=== PATIENT | female | born 1955 | race Caucasian/White ===

== ENCOUNTER 2017-07-24 09:11 | Emergency (ER) | payer MEDICAID ==
--- NOTE | 2017-07-24 10:10 | EDM.PDOC ---
ED HPI GENERAL MEDICAL PROBLEM - General Chief Complaint: ENT Problem Stated Complaint: sore throat, body aches Time Seen by Provider: 07/24/17 09:23 Source of Information: Reports: Patient History Limitations: Reports: No Limitations - History of Present Illness INITIAL COMMENTS - FREE TEXT/NARRATIVE: Patient presents this morning with complaints of all over body aches and pains. States she has a sore throat. She also complains of having a fever. She states that these symptoms all started yesterday about middle of the afternoon and have progressively worsened. She has no other complaints morning. Onset: Sudden Onset Date: 07/23/17 Duration: Getting Worse Location: Reports: Neck Quality: Reports: Ache Severity: Moderate Associated Symptoms: Reports: Fever/Chills, Other (muscle aches and pain) - Related Data Allergies Allergy/AdvReac Type Severity Reaction Status Date / Time Sulfa (Sulfonamide Allergy Rash Verified 07/24/17 09:58 Antibiotics) Home Meds: Home Meds . [Unable to Verify Home Med List] 07/24/17 [History] ED ROS ENT - Review of Systems Review Of Systems: See Below Constitutional: Reports: Fever, Chills, Diaphoresis HEENT: Reports: Throat Pain Respiratory: Reports: No Symptoms Cardiovascular: Reports: No Symptoms Endocrine: Reports: No Symptoms GI/Abdominal: Reports: Abdominal Pain : Reports: No Symptoms Musculoskeletal: Reports: Neck Pain, Joint Pain, Muscle Pain Skin: Reports: No Symptoms Neurological: Reports: No Symptoms Psychiatric: Reports: No Symptoms Hematologic/Lymphatic: Reports: No Symptoms Immunologic: Reports: No Symptoms ED EXAM, ENT - Physical Exam Exam: See Below Exam Limited By: No Limitations General Appearance: Alert, WD/WN, Mild Distress Eye Exam: Bilateral Eye: EOMI, PERRL Ears: Normal TMs Mouth/Throat: Normal Inspection, Normal Gums, Normal Lips, Normal Oropharynx Head: Atraumatic, Normocephalic Neck: Supple, Non-Tender, Full Range of Motion, Lymphadenopathy (R) Respiratory/Chest: No Respiratory Distress, Lungs Clear, Normal Breath Sounds, No Accessory Muscle Use, Chest Non-Tender Cardiovascular: Normal Peripheral Pulses, Regular Rate, Rhythm, No Edema GI/Abdominal: Normal Bowel Sounds, Soft, Non-Tender, No Organomegaly, No Distention, No Abnormal Bruit, No Mass Back: Normal Inspection, Full Range of Motion Extremities: Normal Inspection, Normal Range of Motion, Non-Tender, No Pedal Edema, Normal Capillary Refill Neurological: Alert, Oriented, CN II-XII Intact, Normal Cognition, Normal Gait, Normal Reflexes, No Motor/Sensory Deficits Psychiatric: Normal Affect, Normal Mood Skin: Warm, Dry, Intact, Normal Color, No Rash Lymphatic: No Adenopathy Course - Orders/Labs/Meds Orders: Active Orders 24 hr Category Date Time Status INFLUENZA A+B AG SCREEN [] Stat Lab 07/24/17 09:36 Uncollected STREP SCRN A RAPID W CULT CONF [] Stat Lab 07/24/17 09:36 Uncollected Labs: Laboratory Tests 07/24/17 Range/Units 09:51 WBC 13.1 H (4.0-10.0) x10^3/uL RBC 4.72 (4.00-5.50) x10^6/uL Hgb 14.4 (12.0-16.0) g/dL Hct 42.2 (33.0-47.0) % MCV 89.4 (78.0-93.0) fL MCH 30.5 (26.0-32.0) pg MCHC 34.1 (32.0-36.0) g/dL RDW Coeff of Noel 12.8 (10.0-15.0) % Plt Count 197 (130-400) x10^3/uL Neut % (Auto) 86.7 H (50.0-80.0) % Lymph % (Auto) 8.2 L (25.0-50.0) % [place] % (Auto) 4.7 (2.0-11.0) % Eos % (Auto) 0.2 (0.0-4.0) % Baso % (Auto) 0.2 (0.2-1.2) % Departure - Departure Time of Disposition: 10:10 Disposition: Home, Self-Care 01 Condition: Good Clinical Impression: Strep throat - Discharge Information Instructions: Strep Throat, [id number] Forms: ED Department Discharge Additional Instructions: Stay well hydrated Fill the prescription for Z-pack. Take 2 today and 1 for the next 4 days after that. Please call us with any questions or concerns. - Problem List & Annotations (1) Strep throat SNOMED Code(s): 64017271 Code(s): J02.0 - STREPTOCOCCAL PHARYNGITIS Status: Acute Priority: Low Current Visit: Yes - Problem List Review Problem List Initiated/Reviewed/Updated: Yes - My Orders Last 24 Hours: My Active Orders 07/24/17 09:36 INFLUENZA A+B AG SCREEN [RM] Stat STREP SCRN A RAPID W CULT CONF [RM] Stat - Assessment/Plan Last 24 Hours: My Active Orders 07/24/17 09:36 INFLUENZA A+B AG SCREEN [RM] Stat STREP SCRN A RAPID W CULT CONF [RM] Stat Assessment:: Pharyngitis strep A Plan: Stay well hydrated Fill the prescription for Z-pack. Take 2 today and 1 for the next 4 days after that. Please call us with any questions or concerns.
== END 2017-07-24 10:23 | disposition home or self-care (01) ==
LOC: VM.ED 09:11
DX: J02.0 Streptococcal pharyngitis (principal); Z88.2 Allergy status to sulfonamides
CPT/HCPCS: 36415; 85025; 87804; 87880; 99283